=== PATIENT | female | born 2000 | race Caucasian/White ===

== ENCOUNTER 2019-04-28 15:59 | Emergency (ER) | payer OTHER ==
[~2019-04-28] VITALS: Ht 160 cm; Wt 59.0 kg
[2019-04-28 17:15] VITALS: BP 141/83
[2019-04-28] MEDS: IV NORMAL SALINE 1000ML BAG 1,000 ML IV ONE (18:05)
[2019-04-28 18:12] LABS: BASO % 0 % (0-3); EOS % 0 % (0-3); HEMATOCRIT 33.2 % (36.0-47.0); HEMOGLOBIN 11.2 g/dL (12.0-15.5); LYMPH # 1.1 x10^3/uL (1.0-4.8); LYMPH % 10 % (24-48); MEAN CORPUSCULAR HEMOGLOBIN 31 pg (25-35); MEAN CORPUSCULAR HGB CONC 34 g/dL (31-37); MEAN CORPUSCULAR VOLUME 91 fL (79-100); MONO % 9 % (0-9); NEUT # 8.9 x10^3/uL (1.8-7.7); NEUT % 81 % (31-73); PLATELET COUNT 266 x10^3/uL (140-400); RED BLOOD COUNT 3.65 x10^6/uL (3.50-5.40); RED CELL DISTRIBUTION WIDTH 13.2 % (11.5-14.5); WHITE BLOOD COUNT 11.1 x10^3/uL (4.0-11.0)
--- NOTE | 2019-04-28 18:51 | PHYS DOC ---
Past Medical History Past Medical History: Other Additional Past Medical Histor: CP Past Surgical History: Other Additional Past Surgical Histo: L ARM AND L ANKLE SURGERY Alcohol Use: Occasionally Drug Use: None Adult General Chief Complaint Chief Complaint: VAGINAL BLEEDING HPI HPI Patient is a 19 year old AA female who presents to the emergency department with complaints of vaginal bleeding after having intercourse for the very first time last night. Patient states she did use a condom. She denies any irregular vaginal discharge prior to the onset of vaginal bleeding. Patient states her last menstrual cycle was last week. She denies any pelvic pain, abdominal pain, back pain, dysuria, hematuria, increased urinary frequency. She states that she has saturated at least 4 pads today. She currently denies any pain. Review of Systems Review of Systems See Above Current Medications Current Medications Current Medications Medications (Trade) Dose Ordered Sig/Sony Start Time Stop Time Status Last Admin Dose Admin Sodium Chloride 1,000 ml @ 1,000 mls/hr 1X ONCE 04/28/19 18:00 04/28/19 18:59 DC 04/28/19 18:05 1,000 MLS/HR Allergies Allergies Allergies Coded Allergies Type Severity Reaction Last Updated Verified No Known Drug Allergies 04/28/19 No Physical Exam Physical Exam See Above Constitutional: Well developed, well nourished, no acute distress, non-toxic appearance. [] HENT: Normocephalic, atraumatic, bilateral external ears normal, nose normal. [] Eyes: PERRLA, EOMI, conjunctiva normal, no discharge. [] Neck: Normal range of motion, no stridor. [] Cardiovascular:Heart rate regular rhythm Lungs & Thorax: Respirations even and unlabored, no retractions, no respiratory distress Pelvic Exam: Beam Racker present Radha URBANO Abdomen: Nontender, soft External Genitalia: superficial tear to perineum located at 6 o'clock extending into the vagina with light bleeding Speculum: Normal vaginal mucosa, normal cervical discharge, several large clots present, no active bleeding inside of vaginal vault Bimanual: No adnexal masses or tenderness, No CMT Skin: Warm, dry, no erythema, no rash. [] Extremities: No cyanosis, ROM intact, no edema. [] Neurologic: Alert and oriented X 3, no focal deficits noted. [] Psychologic: Affect normal, judgement normal, mood normal. [] Current Patient Data Vital Signs Vital Signs Date Time Temp Pulse Resp B/P (MAP) Pulse Ox O2 Delivery O2 Flow Rate FiO2 04/28/19 17:15 98.1 115 16 141/83 (102) 100 Room Air 98.1 Lab Values Laboratory Tests Test 04/28/19 18:05 White Blood Count 11.1 x10^3/uL (4.0-11.0) H Red Blood Count 3.65 x10^6/uL (3.50-5.40) Hemoglobin 11.2 g/dL (12.0-15.5) L Hematocrit 33.2 % (36.0-47.0) L Mean Corpuscular Volume 91 fL (79-100) Mean Corpuscular Hemoglobin 31 pg (25-35) Mean Corpuscular Hemoglobin Concent 34 g/dL (31-37) Red Cell Distribution Width 13.2 % (11.5-14.5) Platelet Count 266 x10^3/uL (140-400) Neutrophils (%) (Auto) 81 % (31-73) H Lymphocytes (%) (Auto) 10 % (24-48) L Monocytes (%) (Auto) 9 % (0-9) Eosinophils (%) (Auto) 0 % (0-3) Basophils (%) (Auto) 0 % (0-3) Neutrophils # (Auto) 8.9 x10^3/uL (1.8-7.7) H Lymphocytes # (Auto) 1.1 x10^3/uL (1.0-4.8) Monocytes # (Auto) 1.0 x10^3/uL (0.0-1.1) Eosinophils # (Auto) 0.0 x10^3/uL (0.0-0.7) Basophils # (Auto) 0.0 x10^3/uL (0.0-0.2) Laboratory Tests 04/28/19 18:05 EKG EKG [] Radiology/Procedures Radiology/Procedures 1830- Spoke with Dr. Santos. Will have patient hold direct pressure over tear and give patient ice packs to apply. Will have patient follow up with him. [] Course & Med Decision Making Course & Med Decision Making Pertinent Labs and Imaging studies reviewed. (See chart for details) [] Dragon Disclaimer Dragon Disclaimer This electronic medical record was generated, in whole or in part, using a voice recognition dictation system. Departure Departure Impression: Primary Impression: Superficial injury of vagina without infection Disposition: 01 HOME, SELF-CARE Condition: STABLE Referrals: NO PCP (PCP) Patient Instructions: Episiotomy or Perineal Tear, Care After Additional Instructions: Sitz baths as discussed for discomfort. If bleeding starts again hold direct p ressure to the area as shown in the ER. Follow up with Dr. Santos next week. Return to the ER if symptoms worsen or bleeding does not stop. Problem Qualifiers Primary Impression: Superficial injury of vagina without infection Encounter type: initial encounter Qualified Codes: S30.95XA - Unspecified superficial injury of vagina and vulva, initial encounter BERNADETTE HOPPER DIFFERENTIAL SPECIALIST Apr 28, 2019 18:51
== END 2019-04-28 19:31 | disposition home or self-care (01) ==
LOC: ER 15:59
DX: S31.41XA Laceration without foreign body of vagina and vulva, initial encounter (principal); X58.XXXA Exposure to other specified factors, initial encounter; Y93.89 Activity, other specified; Y92.89 Other specified places as the place of occurrence of the external cause; Y99.8 Other external cause status
CPT/HCPCS: 36415; 85025; 99284; J7030